=== PATIENT | female | born 1990 | race Two or more races ===

== ENCOUNTER 2024-02-18 23:25 | Emergency (ER) | payer OTHER ==
[~2024-02-18] VITALS: Ht 162.6 cm; Wt 55.0 kg
[2024-02-18 23:41] VITALS: BP 98/63; PULSE 71; RESP 18; TEMP 98.3
== END 2024-02-19 01:08 | disposition home or self-care (01) ==
LOC: EMS 23:25
DX: T19.2XXA Foreign body in vulva and vagina, initial encounter (principal); W44.8XXA Other foreign body entering into or through a natural orifice, initial encounter
CPT/HCPCS: 99281; Z7502